=== PATIENT | male | born 1960 | race Caucasian/White ===

== ENCOUNTER 2018-10-06 21:58 | Emergency (ER) | payer OTHER ==
[2018-10-06 22:04] VITALS: TEMP 98.8; BMI 23.8
--- NOTE | 2018-10-06 22:06 | PDOC ---
History of Present Illness - General Chief Complaint: Headache Stated Complaint: HEADACHE Time Seen by Provider: 10/06/18 22:06 - History of Present Illness Initial Comments: 10/06/18 22:21 The patient is a 58 year old male with a PMH of CVA (November 2017, residual LUE weakness) who presents with a two month h/o intermittent headache. Headache is frontal, sharp and occurs twice daily. Today the headache was particularly severe prompting his visit to the ED. Endorses nausea w/o vomiting. No visual changes, gait disturbance, mental status changes. States he has been evaluated by his PMD on two occasions for his headaches w/o any relief. The patient denies chest pain, shortness of breath, abdominal pain, nausea/ vomiting, diarrhea/constipation, dysuria/hematuria. NKDA Surgical: none reported PMD: @ [facility] 10/06/18 22:50 Case d/w ED @ [facility] - patient had MRI in 05/2018 with chronic R sided encephomalacia; CT in 02/2018 shows encephomalacia and gliosis; no CT from 2017. Past History - Past Medical History Allergies/Adverse Reactions: Allergies Allergy/AdvReac Type Severity Reaction Status Date / Time No Known Allergies Allergy Verified 10/06/18 22:04 Home Medications: Ambulatory Orders Amlodipine Besylate 5 mg PO DAILY 10/06/18 - Suicide/Smoking/Psychosocial Hx Smoking History: Never smoked Have you smoked in the past 12 months: No Information on smoking cessation initiated: No Hx Alcohol Use: No Drug/Substance Use Hx: No Review of Systems - Review of Systems Constitutional: No: Chills, Fever HEENTM: No: Blurred Vision, Recent change in vision Respiratory: No: Cough, Shortness of Breath Cardiac (ROS): No: Chest Pain, Lightheadedness, Palpitations ABD/GI: Yes: Nausea. No: Constipated, Diarrhea, Vomiting : No: Burning, Dysuria *Physical Exam - Vital Signs Last Vital Signs Temp Pulse Resp BP Pulse Ox 98.8 F 104 H 20 149/78 97 10/06/18 21:58 10/06/18 21:58 10/06/18 21:58 10/06/18 21:58 10/06/18 21:58 - Physical Exam General Appearance: Yes: Nourished, Appropriately Dressed HEENT: positive: Normal Voice, Hearing Grossly Normal Neck: positive: Trachea midline, Supple Respiratory/Chest: positive: Lungs Clear, Normal Breath Sounds Cardiovascular: positive: S1, S2. 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 negative: Facial Droop ED Treatment Course - LABORATORY CBC & Chemistry Diagram: 10/06/18 22:25 10/06/18 22:25 Medical Decision Making - Medical Decision Making 10/06/18 22:25 58 year old male with headache. No focal neurologic deficit on exam beyond baseline RUE paralysis. No thunderclap, no sudden onset. Initially tachycardic, repeat VS unremarkable. Will check basic labs. Headache cocktail. Reassess. 10/06/18 22:56 Case d/w [facility] - ED patient has h/o MRI with chronic R sided encephomalacia in 05/201810/06/18 23:48 CBC, CMP unremarkable 10/07/18 00:03 Patient reassessed, symptomatically improved. 10/07/18 00:[address] shows pareital encepholmalaica c/w h/o intracranial hypertensive bleed Patient re-evaluated and is symptomatically improved s/p headache cocktail. Will discharge home with follow-up with [facility] neurosurgery. *DC/Admit/Observation/Transfer Diagnosis at time of Disposition: Headache - Discharge Dispostion Disposition: HOME Condition at time of disposition: Fair Decision to Admit order: No - Referrals Referrals: ON STAFF,NOT [Primary Care Provider] - - Patient Instructions Additional Instructions: Follow up with your neurologist within the next 3 days. Please take a copy of the CT scan with you to your appointment. Your care is not complete until you are evaluated by your neurologist. Return to the Emergency Department with any new/worsening/concerning symptoms. - Post Discharge Activity
[2018-10-06] MEDS ORDERED: METOCLOPRAMIDE HCL INJECTION 10 MG/2 ML VIAL IVPUSH ONE (22:22)
[2018-10-06] MEDS ORDERED: ACETAMINOPHEN 1000 MG/100 ML VIAL (NON FORMULARY) IVPB ONE (22:22)
[2018-10-06] MEDS ORDERED: SODIUM CHLORIDE 0.9% 500 ML INFUS.BAG IV ONE (22:22)
[2018-10-06] MEDS ORDERED: METOCLOPRAMIDE HCL INJECTION 10 MG/2 ML VIAL ONE (22:29)
[2018-10-06] MEDS ORDERED: ACETAMINOPHEN INJECTION 100 ML IVPB ONE (22:30)
[2018-10-06 22:40] LABS: BASO % 0.2 % (0-2.0); EOS % 0.3 % (0-4.5); HEMATOCRIT 44.2 % (35.4-49); HEMOGLOBIN 14.7 GM/dL (11.7-16.9); LYMPH % 10.3 % (8-40); MCH 31.3 pg (25.7-33.7); MCHC 33.2 g/dl (32.0-35.9); MEAN CELL VOLUME 94.2 fl (80-96); MEAN PLT VOLUME 10.6 fl (7.5-11.1); MONO % 0.7 % (3.8-10.2); NEUT % 88.5 % (42.8-82.8); PLATELET COUNT 110 K/MM3 (134-434); RBC 4.69 M/mm3 (4.00-5.60); RDW 13.2 % (11.9-15.9); WHITE BLOOD COUNT 6.4 K/mm3 (4.0-10.0)
[2018-10-06 23:05] LABS: ALBUMIN 3.9 g/dl (3.4-5.0); CALCIUM 9.3 mg/dL (8.5-10.1); CREATININE 0.9 mg/dL (0.55-1.3); POTASSIUM 4.3 mmol/L (3.5-5.1); TOT PROT 7.2 g/dl (6.4-8.2)
--- NOTE | 2018-10-07 00:22 | PDOC ---
Documentation entered by Nataliia Forde SCRIBE, acting as scribe for Fe Patrick DO. Fe Patrick DO: This documentation has been prepared by the Eula whitney Adrianna, SCRIBE, under my direction and personally reviewed by me in its entirety. I confirm that the documentation accurately reflects all work, treatment, procedures, and medical decision making performed by me. Attending Attestation - Resident Resident Name: ArshNelida - ED Attending Attestation I have performed the following: I have examined & evaluated the patient, The case was reviewed & discussed with the resident, I agree w/resident's findings & plan - HPI HPI: The patient is a 58 year old male, with a significant PMH of cerebrovascular accident (11 months ago, with residual left upper extremity weakness), who presents to the emergency department today complaining of a headache for the past two months. Patient notes the headache is intermittent in nature, frontal, sharp, and is suddenly onset approximately twice a day for 30 minutes at a time. He endorses associated nausea without vomit, and denies paresthesia. Patient notes his headache was worse than it normally is, which is what prompted him to come to the ED tonight for evaluation. The patient denies chest pain, shortness of breath, and dizziness. Denies fever, chills, nausea, vomit, diarrhea and constipation. Denies dysuria, frequency, urgency and hematuria. Denies changes in vision, gait, or mental status. Allergies: NKA Past surgical history: None reported Social history: No reported PCP: Not on Staff 10/06/18 22:39 - Physicial Exam PE: Agree with resident exam. 10/06/18 22:39 - Medical Decision Making 10/07/18 00:10 58-year-old male with intermittent sharp frontal headache CT scan shows no acute changes Encephalomalacia present consistent with patient's given history of previous intracranial hypertensive bleeding On reevaluation at 12 AM patient is now asymptomatic surrounded by his family and requesting to be discharged home He will follow-up with his neurosurgeon in the [place] system
[2018-10-07 00:24] VITALS: BP 145/85; PULSE 94
== END 2018-10-07 00:28 | disposition home or self-care (01) ==
LOC: JER 21:58
PROC: 3E033NZ Introduction of Analgesics, Hypnotics, Sedatives into Peripheral Vein, Percutaneous Approach (ICD-10-PCS; principal; 2018-10-06)
PROC: 3E033GC Introduction of Other Therapeutic Substance into Peripheral Vein, Percutaneous Approach (ICD-10-PCS; 2018-10-06)
PROC: 3E0337Z Introduction of Electrolytic and Water Balance Substance into Peripheral Vein, Percutaneous Approach (ICD-10-PCS; 2018-10-06)
DX: R51 Headache (principal); I69.834 Monoplegia of upper limb following other cerebrovascular disease affecting left non-dominant side
CPT/HCPCS: 36415; 70450-TC; 80053; 85025; 96374; 96375; 99282-25; J0131

== ENCOUNTER 2019-05-13 14:03 | Emergency (ER) | payer OTHER ==
[2019-05-13 14:24] VITALS: TEMP 98.1; BMI 24.3
--- NOTE | 2019-05-13 15:02 | PDOC ---
History of Present Illness - General Chief Complaint: Seizure Stated Complaint: Seizure Time Seen by Provider: 05/13/19 14:42 History Source: Patient Exam Limitations: No Limitations - History of Present Illness Initial Comments: 05/13/19 15:01 59yM with PMH of hemorrhagic CVA 11/2017 (residual LUE weakness), HTN presenting to ED via ambulance from witnessed seizure at urgent care. 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 He says the next thing he remembers is waking up in the ED here. He is currently endorsing nausea and bladder incontinence. Denies headache, chest pain, sob, back pain, abdominal pain, v/d, fevers, chills, recent illnesses, new weakness, numbness/ tingling. 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 He sees a neurologist at [facility] but was not placed on medications. PMD: [place] Neuro: Linda PMH: see hpi PSH; burhole Meds: amlodipine 5mg Past History - Past Medical History Allergies/Adverse Reactions: Allergies Allergy/AdvReac Type Severity Reaction Status Date / Time No Known Allergies Allergy Verified 10/06/18 22:04 Home Medications: Ambulatory Orders Amlodipine Besylate 5 mg PO DAILY 10/06/18 levETIRAcetam [Keppra -] 500 mg PO BID #14 tablet 05/13/19 CVA: Yes COPD: No HTN: Yes Seizures: Yes - Psycho Social/Smoking Cessation Hx Smoking History: Never smoked Have you smoked in the past 12 months: No Hx Alcohol Use: No Drug/Substance Use Hx: No Review of Systems - Review of Systems Constitutional: No: Symptoms Reported HEENTM: No: Symptoms Reported Respiratory: No: Symptoms reported Cardiac (ROS): No: Symptoms Reported ABD/GI: Yes: Nausea : No: Symptoms Reported Musculoskeletal: No: Symptoms Reported Integumentary: No: Symptoms Reported Neurological: Yes: Seizure *Physical Exam - Vital Signs Last Vital Signs Temp Pulse Resp BP Pulse Ox 98.1 F 86 14 117/82 98 05/13/19 14:18 05/13/19 14:18 05/13/19 14:18 05/13/19 14:18 05/13/19 14:18 - Physical Exam General Appearance: Yes: Nourished, Appropriately Dressed. No: Apparent Distress HEENT: positive: EOMI, ROMI, Normal ENT Inspection Neck: positive: Trachea midline, Supple. negative: Decreased range of motion, Lymphadenopathy (R), Lymphadenopathy (L) Respiratory/Chest: positive: Lungs Clear, Normal Breath Sounds. negative: Crackles, Rales, Rhonchi, Stridor, Wheezing Cardiovascular: positive: Regular Rhythm, Regular Rate, S1, S2. negative: Edema , JVD, Murmur Vascular Pulses: Dorsalis-Pedis (R): 2+, Doralis-Pedis (L): 2+ Gastrointestinal/Abdominal: positive: Normal Bowel Sounds, Soft. negative: Tender Musculoskeletal: negative: CVA Tenderness, Vertebral Tenderness Extremity: positive: Normal Capillary Refill, Pelvis Stable. 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 negative: Motor Strength 5/5 (left arm 2/5 (baseline). ), Numbness, Sensory Deficit, Confused, Disoriented ED Treatment Course - LABORATORY CBC & Chemistry Diagram: 05/13/19 15:25 05/13/19 15:25 - RADIOLOGY Radiology Studies Ordered: Category Date Time Status HEAD CT WITHOUT CONTRAST [CT] Stat CT Scan 05/13/19 14:54 Ordered Medical Decision Making - Medical Decision Making 05/13/19 17:55 59yM with history of CVA, HTN presenting to ED for witnessed tonic clonic seizure, lasting less than 5 minutes. patient post ictal when EMS arrived. vitals wnl. no new neurological deficits. will obtain basic labs, trop, ekg, CT head. CT head similar to prior CT done 10/2018 labs wnl. pt seizure free while in ED. neurologist: Dr. Lance spoke to Dr. Gee at [facility]. not familiar with patient but stated she would recommend starting keppra and having patient follow up in office tomorrow. Can be dc home. Rx for Keppra sent to pharmacy, pt will f/u with neurology. given seizure precautions Discharge - Discharge Information Problems reviewed: Yes Clinical Impression/Diagnosis: Seizure Condition: Good Disposition: HOME - Admission No - Additional Discharge Information Prescriptions: levETIRAcetam [Keppra -] 500 mg PO BID #14 tablet - Follow up/Referral Referrals: ON STAFF,NOT [Primary Care Provider] - - Patient Discharge Instructions Patient Printed Discharge Instructions: Seizure Safety Precautions-Adult Additional Instructions: You were seen in the emergency room for a seizure. This is likely due to the stroke you had. A prescription for Keppra was sent to your pharmacy, please take as directed. This can make you feel drowsy. Please call your neurologist tomorrow to set an appointment, let them know you were seen in the emergency room for a seizure. Please do not drive, take baths, operate machinery. Other safety instructions are provided. Come back to the emergency room if you have worsening headaches, seizures lasting for more than 5 minutes, multiple seizures in a row or if any new or concerning symptom develops. Thank you Print Language: ESTONIAN - Post Discharge Activity
[2019-05-13 16:04] LABS: BASO % 0.7 % (0-2.0); HEMATOCRIT 44.6 % (35.4-49); HEMOGLOBIN 14.7 GM/dL (11.7-16.9); LYMPH % 15.9 % (8-40); MCH 31.3 pg (25.7-33.7); MCHC 32.9 g/dl (32.0-35.9); MEAN CELL VOLUME 95.1 fl (80-96); MEAN PLT VOLUME 10.3 fl (7.5-11.1); MONO % 8.1 % (3.8-10.2); NEUT % 74.3 % (42.8-82.8); RBC 4.69 M/mm3 (4.00-5.60); RDW 13.6 % (11.9-15.9); WHITE BLOOD COUNT 5.8 K/mm3 (4.0-10.0)
[2019-05-13 16:40] LABS: MAGNESIUM 2.2 mg/dL (1.8-2.4)
[2019-05-13 16:41] LABS: ALBUMIN 3.7 g/dl (3.4-5.0); BILIRUBIN,TOTAL 0.7 mg/dL (0.2-1); BLOOD UREA NITROGEN 10.7 mg/dL (7-18); CALCIUM 9.2 mg/dL (8.5-10.1); POTASSIUM 4.2 mmol/L (3.5-5.1); TOT PROT 6.9 g/dl (6.4-8.2)
[2019-05-13 16:45] LABS: URINE APPEARANCE CLEAR; URINE BILIRUBIN NEGATIVE (NEGATIVE); URINE COLOR YELLOW; URINE GLUCOSE (UA) NEGATIVE (NEGATIVE); URINE KETONE TRACE (NEGATIVE); URINE LEUK ESTERASE NEGATIVE (NEGATIVE); URINE NITRITE NEGATIVE (NEGATIVE); URINE PROTEIN TRACE (NEGATIVE); URINE UROBILINOGEN 0.2 mg/dL (0.2-1.0)
[2019-05-13 17:11] LABS: PLATELET COUNT 149 K/MM3 (134-434)
[2019-05-13 17:12] LABS: PLATELET ESTIMATE DECREASED
--- NOTE | 2019-05-13 17:58 | PDOC ---
Documentation entered by Otilia Nelson SCRIBE, acting as scribe for Genesis Carter MD. Genesis Carter MD: This documentation has been prepared by the Omar whitney Xhesika, SCRIBE, under my direction and personally reviewed by me in its entirety. I confirm that the documentation accurately reflects all work, treatment, procedures, and medical decision making performed by me. Attending Attestation - Resident Resident Name: Nanette Randhawa - ED Attending Attestation I have performed the following: I have examined & evaluated the patient, The case was reviewed & discussed with the resident, I agree w/resident's findings & plan, Exceptions are as noted - HPI HPI: 05/13/19 15:48 The patient is a 59 year old male, with a significant PMH of hemorrhagic CVA 2017 (residual LUE weakness), and HTN, who presents to the emergency department BIBA s/p seizure. Pt states he was filling out paperwork and the next thing he knew he was here in the ED. EMS reports tonic-clonic activity, however, symptoms resolved prior to coming to the ED. EMS notes the patient was postictal, confused and altered. Pt notes his last seizure was November 2018. Allergies: NKA PMD: Dr. Calabrese Neuro: Dr. Mckeon - Physicial Exam PE: 05/13/19 16:45 GENERAL: The patient is in no acute distress. ENT: Ears normal, nares patent, oropharynx clear without exudates. Moist mucous membranes. NECK: Normal range of motion, supple LUNGS: Breath sounds equal, clear to auscultation bilaterally. No wheezes, and no crackles. HEART:Regular rate and rhythm, normal S1 and S2 without murmur, rub or gallop. ABDOMEN: Soft, nontender, normoactive bowel sounds. EXTREMITIES: Normal range of motion, no edema. NEUROLOGICAL: Cranial nerves II through XII grossly intact. Normal speech. No focal neurological deficits. SKIN: Warm, Dry, normal turgor, no rashes or lesions noted. - Medical Decision Making 05/13/19 16:45 MR De Jesus is a 59 yo M who presents to the ER s/p seizure This is the 3rd seizure this patient has had - last one was November 2018 Patient is currently back at his baseline 05/13/19 17:12 EKG: Normal sinus rhythm, rate of 90 bpm, axis is normal, intervals are normal, no ST elevation or depression, artifact noted at baseline in lead V2, T waves are upright 05/13/19 17:13 Laboratory Tests 05/13/19 05/13/19 05/13/19 15:25 15:25 15:25 WBC 5.8 Hgb 14.7 Hct 44.6 Plt Count 149 D BUN 10.7 Creatinine 1.0 Troponin I < 0.02 Urine Ketones Urine Blood Urine Nitrite Ur Leukocyte Esterase 05/13/19 15:28 WBC Hgb Hct Plt Count BUN Creatinine Troponin I Urine Ketones Trace H Urine Blood Negative Urine Nitrite Negative Ur Leukocyte Esterase Negative CT head: 05/13/19 17:57 CT head: No definite change identified in comparison to prior CT Chronic right cerebral infarcts with ex vacuo dilatation of the right lateral ventricle Right parietal eugenio hole Call placed to patient's neurology The covering physician recommends Keppra 500 mg twice daily This was ordered Patient to follow-up tomorrow Clinical impression: Seizure, initial presentation
[2019-05-13 18:21] VITALS: BP 115/77; PULSE 90
--- NOTE | 2019-05-14 11:53 | EKG ---
Test Reason : Blood Pressure : / mmHG Vent. Rate : 090 BPM Atrial Rate : 090 BPM P-R Int : 196 ms QRS Dur : 076 ms QT Int : 352 ms P-R-T Axes : 064 -14 040 degrees QTc Int : 430 ms POOR DATA QUALITY, INTERPRETATION MAY BE ADVERSELY AFFECTED NORMAL SINUS RHYTHM NONSPECIFIC ST ABNORMALITY ABNORMAL ECG NO PREVIOUS ECGS AVAILABLE Confirmed by KECIA GALINDO MD ([id number]) on 05/14/2019 11:52:26 AM Referred By: Confirmed By:KECIA GALINDO MD
== END 2019-05-13 18:21 | disposition home or self-care (01) ==
LOC: JER 14:03
DX: R56.9 Unspecified convulsions (principal)
CPT/HCPCS: 36415; 70450-TC; 80053; 81003; 83735; 84484; 85025; 87086; 93005; 93010; 99282-25